=== PATIENT | female | born 1955 | race Hispanic/Latino ===

== ENCOUNTER → 2024-12-17 | Outpatient (CLI) | payer MEDICARE ==
--- NOTE | 2024-12-17 18:23 | HMCIMG ---
EXAM: CR Lumbar Spine, 4 View. CLINICAL HISTORY: RADICULOPATHY, LUMBAR REGION COMPARISON: None provided. FINDINGS: The lumbar alignment is within normal limits. There is straightening of the lumbar spine that may reflect paraspinal muscle spasm. There is lumbar spondylosis evident by small to moderate anterior osteophytes and syndesmophytes at multiple levels. There is multilevel degenerative disc disease, moderate to severe at L4-L5 and L5-S1. 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 There is no listhesis. There is no radiographic evidence of dynamic instability on flexion-extension views. IMPRESSION: 1. No acute osseous injury. 2. Moderate to severe degenerative disc disease at L4-L5 and L5-S1, with multilevel lumbar spondylosis and facet arthropathy at L4-S1. /[place]
== END | disposition home or self-care (01) ==
LOC: RAH 13:41
PROVIDERS: ATTEND Physical Medicine & Rehabilitation
DX: M47.26 Other spondylosis with radiculopathy, lumbar region (principal); M51.16 Intervertebral disc disorders with radiculopathy, lumbar region; M47.818 Spondylosis without myelopathy or radiculopathy, sacral and sacrococcygeal region; M51.34 Other intervertebral disc degeneration, thoracic region; M25.78 Osteophyte, vertebrae
CPT/HCPCS: 72110; 72114